=== PATIENT | female | born 1985 | race Two or more races ===

== ENCOUNTER → 2021-01-30 | Outpatient (REF) | LOC: M LABSMTC 13:35 | PROVIDERS: ATTEND Pediatrics | DX: Z11.52 Encounter for screening for COVID-19 (principal) ==

== ENCOUNTER → 2021-02-02 | Outpatient (REF) | LOC: M LABSMTC 12:26 | PROVIDERS: ATTEND Pediatrics | DX: Z20.822 Contact with and (suspected) exposure to COVID-19 (principal) ==

== ENCOUNTER → 2021-08-23 | Outpatient (CLI) | payer SELFPAY | LOC: M LABSMTC 09:09 | PROVIDERS: ATTEND Pediatrics | DX: Z20.822 Contact with and (suspected) exposure to COVID-19 (principal) ==

== ENCOUNTER → 2021-09-18 | Outpatient (REF) | payer SELFPAY | LOC: M EMP 11:00 | PROVIDERS: ATTEND Family Medicine | DX: Z11.52 Encounter for screening for COVID-19 (principal) ==

== ENCOUNTER → 2021-09-18 | Outpatient (REF) | LOC: M LABSMTC 09:12 | PROVIDERS: ATTEND Pediatrics | DX: Z11.52 Encounter for screening for COVID-19 (principal) ==

== ENCOUNTER → 2021-10-04 | Outpatient (REF) ==
[2021-10-04 13:08] LABS: RSV AMPLIFICATION NEGATIVE (NEGATIVE)
== END ==
LOC: M LABSMTC 11:32
PROVIDERS: ATTEND Pediatrics
DX: Z11.52 Encounter for screening for COVID-19 (principal)

== ENCOUNTER → 2021-11-06 | Outpatient (CLI) | payer BC ==
[2021-11-06 13:37] LABS: BASO # 0.1 10^3/uL (0.0-0.2); BASO % 1.4 % (0.0-1.0); EOS # 0.3 10^3/uL (0.0-0.5); EOS % 4.6 % (0.0-3.0); HEMOGLOBIN 12.2 g/dl (12.0-15.5); LYMPH # 2.6 10^3/uL (1.5-5.0); MEAN CORPUSCULAR HEMOGLOBIN 25.6 pg (27.0-33.0); MEAN CORPUSCULAR HGB CONC 32.1 g/dl (32.0-36.5); MEAN CORPUSCULAR VOLUME 79.7 fl (80.0-96.0); MONO # 0.6 10^3/uL (0.0-0.8); MONO % 8.7 % (2.0-8.0); NEUTROPHILS # 2.9 10^3/uL (1.5-8.5); PLATELET COUNT, AUTOMATED 293 10^3/uL (150-450); RED BLOOD COUNT 4.77 10^6/uL (4.00-5.40); WHITE BLOOD COUNT 6.5 10^3/uL (4.0-10.0)
[2021-11-06 14:33] LABS: ALBUMIN 3.6 GM/DL (3.2-5.2); ALT/SGPT 32 U/L (12-78); BILIRUBIN,TOTAL 0.5 MG/DL (0.2-1.0); BLOOD UREA NITROGEN 9 MG/DL (7-18); CALCIUM LEVEL 8.5 MG/DL (8.5-10.1); CARBON DIOXIDE LEVEL 24 MEQ/L (21-32); CHLORIDE LEVEL 105 MEQ/L (98-107); CREATININE FOR GFR 0.68 MG/DL (0.55-1.30); FREE T4 1.43 NG/DL (0.76-1.46); GLOMERULAR FILTRATION RATE > 60.0 (>60); GLUCOSE, FASTING 93 MG/DL (70-100); HCG, SERUM QUANTITATIVE 29 MIU/ML; SODIUM LEVEL 136 MEQ/L (136-145); TOTAL PROTEIN 7.6 GM/DL (6.4-8.2)
[2021-11-06 15:11] LABS: VITAMIN B12 LEVEL 436 PG/ML (247-911)
[2021-11-06 15:22] LABS: TOTAL 25(OH) VITAMIN D 19.9 NG/ML (30.0-100.0)
== END ==
LOC: M PLALAB 11:04
PROVIDERS: ATTEND Family Medicine
DX: E06.3 Autoimmune thyroiditis (principal); D51.9 Vitamin B12 deficiency anemia, unspecified; N91.1 Secondary amenorrhea

== ENCOUNTER → 2021-11-09 | Outpatient (CLI) | payer BC | LOC: M PLALAB 14:11 | PROVIDERS: ATTEND Obstetrics & Gynecology | DX: Z34.90 Encounter for supervision of normal pregnancy, unspecified, unspecified trimester (principal); Z3A.00 Weeks of gestation of pregnancy not specified ==

== ENCOUNTER → 2022-05-28 | Outpatient (CLI) | payer BC | LOC: M WHC 09:35 | PROVIDERS: ATTEND Obstetrics & Gynecology | DX: Z36.87 Encounter for antenatal screening for uncertain dates (principal); Z3A.08 8 weeks gestation of pregnancy ==

== ENCOUNTER → 2022-05-31 | Outpatient (CLI) | payer BC ==
[~2022-05-31] MED LIST: LEVO175T2 PO; PRENMIS3 PO
== END ==
LOC: M LABSMTC 09:21
PROVIDERS: ATTEND Anesthesiology
DX: Z01.818 Encounter for other preprocedural examination (principal); Z11.52 Encounter for screening for COVID-19

== ENCOUNTER 2022-06-01 11:40 | Day surgery (SDC) | payer BC ==
[~2022-06-01] VITALS: Ht 160 cm; Wt 120.6 kg
[2022-06-01] MEDS: LR 1,000 ML IV SCH ×2 (11:55→13:01)
[2022-06-01] MEDS ORDERED: dexameTHASONE 4 MG/ML 1ML VIAL (J1100 PER 1MG) As Ordered ONE (14:21)
[2022-06-01] MEDS ORDERED: LIDOCAINE 2% 100MG/5ML SDV (FOR ANES.) As Ordered ONE (14:21)
[2022-06-01] MEDS ORDERED: KETOROLAC 60MG 2ML VIAL As Ordered ONE (14:21)
[2022-06-01] MEDS ORDERED: ONDANSETRON 4MG 2ML VIAL As Ordered ONE (14:21)
[2022-06-01] MEDS ORDERED: MIDAZOLAM INJ 2MG/2ML VIAL (J2250 PER 1MG) As Ordered ONE (14:21)
[2022-06-01] MEDS ORDERED: METOCLOPRAMIDE INJ 10MG/2ML VIAL (J2765 PER 1) As Ordered ONE (14:21)
[2022-06-01] MEDS ORDERED: fentaNYL 250 MCG/5 ML INJECTION As Ordered ONE (14:21)
[2022-06-01] MEDS ORDERED: propofoL 200 MG/20 ML VIAL As Ordered ONE ×2 (14:21→15:49)
[2022-06-01] MEDS ORDERED: ACETAMINOPHEN 1000MG 100ML IV BTL (OFIRMEV) (J0131 PER 10MG) As Ordered ONE (14:29)
[2022-06-01] MEDS ORDERED: LIDOCAINE W/EPINEPHRINE 1% 20ML VIAL As Ordered ONE (14:47)
[2022-06-01] MEDS ORDERED: DOXYCYCLINE HYCLATE 100MG/10ML VIAL As Ordered ONE (14:49)
[2022-06-01] MEDS ORDERED: PHENYLephrine 500MCG 5ML (100MCG/ML) SYRINGE As Ordered ONE (15:17)
[2022-06-01] MEDS ORDERED: METHYLERGONOVINE MALEATE 0.2 MG/ML VIAL (J2210) As Ordered ONE (15:27)
[2022-06-01] MEDS ORDERED: PERCOCET 5MG/325MG TAB PO PRN (16:00)
[2022-06-01] MEDS ORDERED: LR 1,000 ML IV SCH (16:00)
[2022-06-01] MEDS ORDERED: MORPHINE 2 MG/ML 1ML VIAL IV PRN (16:00)
[2022-06-01] MEDS ORDERED: fentaNYL 100 MCG/2 ML INJECTION IV PRN (16:00)
[2022-06-01] MEDS ORDERED: ONDANSETRON 4MG 2ML VIAL IV PRN (16:00)
[2022-06-01 16:50] VITALS: BP 117/57
== END 2022-06-01 16:56 | disposition home or self-care (01) ==
LOC: M SDC 11:40
PROVIDERS: ATTEND Obstetrics & Gynecology
DX: O02.1 Missed abortion (principal); E03.9 Hypothyroidism, unspecified; Z79.899 Other long term (current) drug therapy; Z91.018 Allergy to other foods
CPT/HCPCS: 59820; 88305; J0131; J1100; J1885; J2210; J2250; J2370; J2405; J2765; J3010

== ENCOUNTER → 2022-06-19 | Outpatient (REF) | LOC: M LABSMTC 09:17 | PROVIDERS: ATTEND Family Medicine | DX: Z11.52 Encounter for screening for COVID-19 (principal) ==

== ENCOUNTER → 2022-06-22 | Outpatient (REF) | LOC: M EMP 09:01 | PROVIDERS: ATTEND Family Medicine | DX: Z20.822 Contact with and (suspected) exposure to COVID-19 (principal); Z53.9 Procedure and treatment not carried out, unspecified reason ==

== ENCOUNTER → 2022-06-24 | Outpatient (REF) | LOC: M LABSMTC 11:17 | PROVIDERS: ATTEND Family Medicine | DX: Z20.822 Contact with and (suspected) exposure to COVID-19 (principal) ==

== ENCOUNTER → 2022-09-10 | Outpatient (REF) ==
[2022-09-10 13:42] LABS: RSV AMPLIFICATION NEGATIVE (NEGATIVE)
== END ==
LOC: M LABSMTC 11:02
PROVIDERS: ATTEND Family Medicine
DX: Z20.822 Contact with and (suspected) exposure to COVID-19 (principal)

== ENCOUNTER → 2023-03-12 | Outpatient (REF) | LOC: M EMP 15:13 | PROVIDERS: ATTEND Family Medicine | DX: Z20.822 Contact with and (suspected) exposure to COVID-19 (principal) ==

== ENCOUNTER → 2023-03-18 | Outpatient (REF) | LOC: M EMP 09:34 | PROVIDERS: ATTEND Family Medicine | DX: Z20.822 Contact with and (suspected) exposure to COVID-19 (principal) ==

== ENCOUNTER → 2023-04-26 | Outpatient (CLI) | payer BC ==
[~2023-04-26] MED LIST changes: +ISOVUE-370 76% 100ML VIAL As Ordered ONE
== END ==
LOC: M RAD 08:40
PROVIDERS: ATTEND Family Medicine
DX: R59.0 Localized enlarged lymph nodes (principal)
CPT/HCPCS: 70491; Q9967

== ENCOUNTER → 2023-07-29 | Outpatient (CLI) | payer BC ==
[~2023-07-29] MED LIST changes: -ISOVUE-370 76% 100ML VIAL As Ordered ONE
[2023-07-29 15:58] LABS: HEMATOCRIT 40.8 % (36.0-47.0); HEMOGLOBIN 13.4 g/dl (12.0-15.5); MEAN CORPUSCULAR HEMOGLOBIN 26.7 pg (27.0-33.0); MEAN CORPUSCULAR HGB CONC 32.8 g/dl (32.0-36.5); MEAN CORPUSCULAR VOLUME 81.4 fl (80.0-96.0); PLATELET COUNT, AUTOMATED 229 10^3/uL (150-450); RED BLOOD COUNT 5.01 10^6/uL (4.00-5.40); WHITE BLOOD COUNT 7.3 10^3/uL (4.0-10.0)
[2023-07-29 16:34] LABS: FREE T4 1.37 NG/DL (0.89-1.76); THYROID STIMULATING HORMONE 3.124 uIU/ML (0.55-4.78)
[2023-07-29 17:04] LABS: HIV 1&2 SCREEN NEGATIVE (NEGATIVE)
[2023-07-29 17:09] LABS: GC DNA AMPLIFICATION NEGATIVE (NEGATIVE)
[2023-07-29 17:12] LABS: HCG, SERUM QUANTITATIVE 1303.3 MIU/ML (<4.2); HEPATITIS C VIRUS ABY INDEX 0.08 INDEX (<0.8)
== END ==
LOC: M PLALAB 11:34
PROVIDERS: ATTEND Obstetrics & Gynecology
DX: Z32.01 Encounter for pregnancy test, result positive (principal)

== ENCOUNTER → 2023-07-31 | Outpatient (REF) | payer BC | LOC: M PLALAB 12:56 | PROVIDERS: ATTEND Obstetrics & Gynecology | DX: Z32.01 Encounter for pregnancy test, result positive (principal) ==

== ENCOUNTER → 2023-09-09 | Outpatient (CLI) | payer BC | LOC: M PLALAB 09:45 | PROVIDERS: ATTEND Obstetrics & Gynecology | DX: O09.511 Supervision of elderly primigravida, first trimester (principal); Z86.32 Personal history of gestational diabetes; Z3A.00 Weeks of gestation of pregnancy not specified ==

== ENCOUNTER → 2023-11-18 | Outpatient (CLI) | payer BC | LOC: M WHC 07:34 | PROVIDERS: ATTEND Specialist | DX: Z34.82 Encounter for supervision of other normal pregnancy, second trimester (principal) ==

== ENCOUNTER → 2023-12-16 | Outpatient (CLI) | payer BC | LOC: M RAD 11:26 | PROVIDERS: ATTEND Obstetrics & Gynecology | DX: O09.522 Supervision of elderly multigravida, second trimester (principal); Z3A.24 24 weeks gestation of pregnancy ==

== ENCOUNTER → 2024-01-13 | Outpatient (CLI) | payer BC ==
[2024-01-13 15:48] LABS: HEMATOCRIT 31.8 % (36.0-47.0); HEMOGLOBIN 10.2 g/dl (12.0-15.5); MEAN CORPUSCULAR HGB CONC 32.1 g/dl (32.0-36.5); MEAN CORPUSCULAR VOLUME 84.1 fl (80.0-96.0); PLATELET COUNT, AUTOMATED 290 10^3/uL (150-450); RED BLOOD COUNT 3.78 10^6/uL (4.00-5.40); WHITE BLOOD COUNT 8.4 10^3/uL (4.0-10.0)
[2024-01-13 16:21] LABS: THYROID STIMULATING HORMONE 1.892 uIU/ML (0.55-4.78)
== END ==
LOC: M PLALAB 11:37
PROVIDERS: ATTEND Obstetrics & Gynecology
DX: O09.529 Supervision of elderly multigravida, unspecified trimester (principal); E03.9 Hypothyroidism, unspecified; O99.280 Endocrine, nutritional and metabolic diseases complicating pregnancy, unspecified trimester; Z3A.00 Weeks of gestation of pregnancy not specified

== ENCOUNTER → 2024-01-27 | Outpatient (CLI) | payer BC | LOC: M RAD 11:45 | PROVIDERS: ATTEND Obstetrics & Gynecology | DX: O99.283 Endocrine, nutritional and metabolic diseases complicating pregnancy, third trimester (principal); Z3A.30 30 weeks gestation of pregnancy; E03.9 Hypothyroidism, unspecified; O36.63X3 Maternal care for excessive fetal growth, third trimester, fetus 3 ==

== ENCOUNTER → 2024-03-09 | Outpatient (REF) | payer BC | LOC: M LAB REF 16:47 | PROVIDERS: ATTEND Obstetrics & Gynecology | DX: O99.283 Endocrine, nutritional and metabolic diseases complicating pregnancy, third trimester (principal); Z36.89 Encounter for other specified antenatal screening; Z3A.00 Weeks of gestation of pregnancy not specified ==

== ENCOUNTER → 2024-03-16 | Outpatient (CLI) | payer BC | LOC: M WHC 09:49 | PROVIDERS: ATTEND Obstetrics & Gynecology | DX: O36.63X0 Maternal care for excessive fetal growth, third trimester, not applicable or unspecified (principal); Z3A.37 37 weeks gestation of pregnancy ==

== ENCOUNTER 2024-03-28 11:06 | Inpatient (IN) | payer BC ==
[~2024-03-28] VITALS: Ht 162.6 cm; Wt 117.3 kg
[2024-03-28] VITALS (38 sets, daily range): BP systolic 99–143; BP diastolic 55–93; O2SAT 95–100
[~2024-03-28 11:06] MED LIST changes: +**PENDING PCN ENTRY XX SCH
[2024-03-28] MEDS ORDERED: TUMS500C PO (11:29)
[2024-03-28] MEDS ORDERED: MENT1ADH18 TP (11:31)
[2024-03-28] MEDS ORDERED: [UNRECOGNIZED DRUG - CODE] TP (11:32)
[2024-03-28] MEDS ORDERED: HOME MED LIST COMPLETE! XX SCH (11:35)
[2024-03-28 11:58] LABS: HEMATOCRIT 32.2 % (36.0-47.0); HEMOGLOBIN 10.5 g/dl (12.0-15.5); MEAN CORPUSCULAR HEMOGLOBIN 25.5 pg (27.0-33.0); MEAN CORPUSCULAR HGB CONC 32.6 g/dl (32.0-36.5); MEAN CORPUSCULAR VOLUME 78.2 fl (80.0-96.0); PLATELET COUNT, AUTOMATED 267 10^3/uL (150-450); RED BLOOD COUNT 4.12 10^6/uL (4.00-5.40); WHITE BLOOD COUNT 7.5 10^3/uL (4.0-10.0)
[2024-03-28] MEDS ORDERED: LACTATED RINGER'S 1000 ML IV STA (11:59)
[2024-03-28] MEDS ORDERED: PENICILLIN G POTASSIUM 5 MU IV 5 MU in D5W MINI-BAG PLUS 100 ML IV STA (11:59)
[2024-03-28] MEDS ORDERED: LR 1,000 ML IV SCH (12:00)
[2024-03-28] MEDS ORDERED: TRANEXAMIC ACID INJection 1,000 MG in NS 100 ML IV PRN (12:00)
[2024-03-28] MEDS ORDERED: OXYTOCIN DRIP 30 UNITS in IV 1 EA IV PRN (12:00)
[2024-03-28] MEDS ORDERED: miSOPROStol 50MCG 1/2 TABLET PO PRN (12:00)
[2024-03-28] MEDS ORDERED: OXYTOCIN INJ 10UNITS/ML 1ML VIAL IV PRN (12:00)
[2024-03-28] MEDS ORDERED: CARBOPROST TROMETHAMINE 250 MCG/ML AMP IM PRN (12:00)
[2024-03-28] MEDS ORDERED: METHYLERGONOVINE MALEATE 0.2MG/ML 1ML VIAL IM PRN (12:00)
[2024-03-28] MEDS ORDERED: OXYTOCIN INJ 10UNITS/ML 1ML VIAL IM PRN (12:00)
[2024-03-28] MEDS ORDERED: LIDOCAINE 1% MDV 20ML VIAL INFIL PRN (12:00)
[2024-03-28] MEDS ORDERED: PEN G POT 3,000,000 UNIT/50 ML 3,000,000 UNIT in IV 1 EA IV SCH ×3 (12:15→16:00)
[2024-03-28] MEDS: LR 1,000 ML IV SCH (12:35)
[2024-03-28] MEDS: OXYTOCIN DRIP 30 UNITS in IV 1 EA IV SCH (12:45)
[2024-03-28] MEDS: PENICILLIN G POTASSIUM 5 MU IV 5 MU in D5W MINI-BAG PLUS 100 ML IV STA (13:10)
[2024-03-28 13:38] LABS: HEPATITIS C VIRUS ABY INDEX < 0.02 INDEX (<0.8)
[2024-03-28] MEDS: PEN G POT 3,000,000 UNIT/50 ML 3,000,000 UNIT in IV 1 EA IV SCH (17:12)
[2024-03-28] MEDS ORDERED: FENTANYL 2MCG/ML ROPIVACAINE 0.2% IN 0.9% NACL 100ML IVBAG As Ordered ONE (18:13)
[2024-03-28] MEDS ORDERED: diphenhydrAMINE 50MG/ML VIAL IV PRN (18:20)
[2024-03-28] MEDS ORDERED: LR 500 ML IV PRN (18:20)
[2024-03-28] MEDS ORDERED: ePHEDrine SULFATE 25 MG/5 ML(5MG/ML) SYRINGE IVP PRN (18:20)
[2024-03-28] MEDS ORDERED: EPIDURAL/PCA KEYS XX PRN (18:20)
[2024-03-28] MEDS ORDERED: NALOXONE INJ 0.4MG/1ML VIAL IV PRN (18:20)
[2024-03-28] MEDS ORDERED: ONDANSETRON 4MG 2ML VIAL IV PRN (18:20)
[2024-03-28] MEDS: FENTANYL/ROPIVACAINE/NACL BAG 100 ML EPIDURAL SCH (18:49)
[2024-03-28 20:34] LABS: CORD GAS ABE A -5.5; CORD GAS HCO3 A 22.3 MMOL/L; CORD GAS O2 SAT A 41.6 %; CORD GAS PCO2 A 51.7 mmHg; CORD GAS PH A 7.252 UNITS; CORD GAS PO2 A 21.6 mmHg; CORD GAS SBC A 18.7 MMOL/L; CORD GAS TCO2 A 23.9 MMOL/L
[2024-03-28 20:34] LABS: CORD GAS ABE V -1.8; CORD GAS PCO2 V 44.6 mmHg; CORD GAS PH V 7.349 UNITS; CORD GAS PO2 V 24.7 mmHg; CORD GAS SBC V 21.9 MMOL/L; CORD GAS TCO2 V 25.4 MMOL/L
[2024-03-28] MEDS ORDERED: IBUPROFEN 800 MG TAB PO PRN (20:40)
[2024-03-28] MEDS ORDERED: MOM 30ML SUSPENSION UDC PO PRN (20:40)
[2024-03-28] MEDS ORDERED: METHYLERGONOVINE MALEATE 0.2 MG TAB PO PRN (20:40)
[2024-03-28] MEDS ORDERED: RHO(D) IMMUNE GLOBULIN/MALTOSE 500MCG(2500IU)/2.2ML VIAL (WINRHO) IM SCH (20:40)
[2024-03-28] MEDS ORDERED: ACETAMINOPHEN 500 MG TAB PO PRN (20:40)
[2024-03-28] MEDS ORDERED: ANUSOL HC CREAM 30GM TOP PRN (20:40)
[2024-03-28] MEDS ORDERED: DIBUCAINE 1% OINTMENT 30GM TOP PRN (20:40)
[2024-03-28] MEDS: OXYTOCIN DRIP 30 UNITS in IV 1 EA IV PRN (20:52)
[2024-03-29 06:00] VITALS: BP 109/64; O2SAT 99
[2024-03-29] MEDS: DOCUSATE SODIUM 100MG CAPSULE PO PRN (07:45)
[2024-03-29] MEDS: PRENATAL VITAMINS CHEWABLE TABLET PO SCH (07:45)
[2024-03-29 08:03] VITALS: BP 109/64; TEMP 98.3; O2SAT 99
[2024-03-29] MEDS ORDERED: PRENATAL VITAMINS CHEWABLE TABLET PO SCH (09:00)
[2024-03-29 18:00] VITALS: BP 109/64; O2SAT 98
[2024-03-30] MEDS ORDERED: LEVOTHYROXINE 150MCG TABLET (0.15MG) PO SCH (06:00)
[2024-03-30] MEDS ORDERED: MEASLES,MUMPS,RUBELLA VACCINE INJ (MMR-II) SC.IMMUN ONE (09:00)
== END 2024-03-29 19:00 | disposition home or self-care (01) | DRG 560 ==
LOC: M LDI 11:06 → M OBS 03-29 02:16
PROVIDERS: ADMIT Obstetrics & Gynecology; ATTEND Obstetrics & Gynecology
PROC: 10E0XZZ Delivery of Products of Conception, External Approach (ICD-10-PCS; principal; 2024-03-28)
PROC: 0HQ9XZZ Repair Perineum Skin, External Approach (ICD-10-PCS; 2024-03-28)
PROC: 10907ZC Drainage of Amniotic Fluid, Therapeutic from Products of Conception, Via Natural or Artificial Opening (ICD-10-PCS; 2024-03-28)
PROC: 3E033VJ Introduction of Other Hormone into Peripheral Vein, Percutaneous Approach (ICD-10-PCS; 2024-03-28)
DX: O99.284 Endocrine, nutritional and metabolic diseases complicating childbirth (principal); E66.9 Obesity, unspecified; E03.9 Hypothyroidism, unspecified; Z37.0 Single live birth; Z3A.39 39 weeks gestation of pregnancy; O09.523 Supervision of elderly multigravida, third trimester; O36.60X0 Maternal care for excessive fetal growth, unspecified trimester, not applicable or unspecified; O99.214 Obesity complicating childbirth; O70.0 First degree perineal laceration during delivery

== ENCOUNTER → 2025-08-25 | Outpatient (REF) | payer BC ==
[~2025-08-25] MED LIST changes: -**PENDING PCN ENTRY XX SCH; +MENT1ADH18 TP; +TUMS500C PO; +[UNRECOGNIZED DRUG - CODE] TP
== END ==
LOC: M LAB REF 16:53
PROVIDERS: ATTEND Family Medicine
DX: J02.9 Acute pharyngitis, unspecified (principal)

== ENCOUNTER → 2025-09-16 | Outpatient (REF) | payer BC | LOC: M LAB REF 17:02 | PROVIDERS: ATTEND Family Medicine | DX: J02.9 Acute pharyngitis, unspecified (principal) ==